=== PATIENT | male | born 1980 ===

== ENCOUNTER 2019-05-12 10:32 | Outpatient (CLI) | payer OTHER | END 2019-05-12 10:34 | disposition home or self-care (01) | LOC: RAD 10:32 | DX: M79.662 Pain in left lower leg (principal) ==

== ENCOUNTER 2019-05-12 14:47 | Outpatient (CLI) | payer OTHER | END 2019-05-12 14:53 | disposition home or self-care (01) | LOC: NUCLEAR 14:47 | DX: M79.669 Pain in unspecified lower leg (principal) ==